=== PATIENT | male | born 1985 | race Two or more races ===

== ENCOUNTER → 2020-07-27 | Outpatient (CLI) | payer OTHER ==
--- NOTE | 2020-07-27 11:06 | KCIC ---
STUDY: MRI of the right shoulder without contrast INDICATION: Progressive right shoulder pain. COMPARISON: None. TECHNIQUE: Multiplanar MR imaging of the right shoulder performed without the use of intravenous or i ntra-articular contrast. 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 Unremarkable subacromial subdelto id bursa. Rotator cuff: Intact. Muscular bulk is normal. Labrum: Linear T2 signal elevation at the undersurface of the biceps-labral anchor with a configurati on typical of a sublabral recess. No SLAP tear is identified. Long head biceps tendon: Intact and normally located. Cartilage: No full-thickness chondral defect is apparent. Bones: No fracture or focally aggressive marrow signal abnormality. Distal clavicular edema as alread y described. Miscellaneous: Normal volume glenohumeral joint fluid. Morphologically benign axillary lymph nodes. Impression: 1. Intact rotator cuff, long head biceps and labrum. 2. 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 Recommend correlation for pinpoint tenderness and any overuse tendencies to suggest this as the cause of the pa tient's symptoms. Electronically signed by: DEDRA GÓMEZ MD (07/27/2020 11:04 AM) [id number]
== END ==
LOC: KCIC MRI 08:05
PROVIDERS: ATTEND Family Medicine
DX: M19.011 Primary osteoarthritis, right shoulder (principal); M75.101 Unspecified rotator cuff tear or rupture of right shoulder, not specified as traumatic
CPT/HCPCS: 73221